=== PATIENT | female | born 1975 | race Two or more races ===

== ENCOUNTER 2024-08-16 07:35 | Emergency (ER) | payer OTHER ==
[~2024-08-16] VITALS: Ht 162.6 cm; Wt 72.7 kg
[2024-08-16] MEDS: DiphenhydrAMINE HCL 50 MG CAPSULE PO ONE (08:37)
[2024-08-16 08:55] VITALS: TEMP 98.2
[2024-08-16 09:12] LABS: COVID AG,FIA SOURCE NASAL SWAB
[2024-08-16 09:35] LABS: BASOPHILS % (AUTO) 0.4 % (0.0-2.0); EOSINOPHILS % (AUTO) 7.1 % (1.0-6.0); HEMATOCRIT 41.4 % (36-46); HEMOGLOBIN 13.7 g/dL (12.0-16.0); LYMPHOCYTES # (AUTO) 1.8 K/uL (1.0-4.8); LYMPHOCYTES % (AUTO) 23.3 % (22.0-44.0); MEAN CORPUSCULAR HEMOGLOBIN 30.7 pg (26.0-34.0); MEAN CORPUSCULAR HGB CONC 33.2 G/dL (31.0-37.0); MEAN CORPUSCULAR VOLUME 93 fL (80-100); MONOCYTES # (AUTO) 0.5 K/uL (0.1-1.0); MONOCYTES % (AUTO) 6.7 % (2.0-9.0); NEUTROPHILS # (AUTO) 4.9 K/uL (1.8-7.7); NEUTROPHILS % (AUTO) 62.5 % (40.0-70.0); PLATELET COUNT (AUTO) 208 K/uL (150-450); RED BLOOD CELL COUNT(AUTO) 4.48 MIL/uL (4.00-5.20); RED CELL DISTRIBUTION WIDTH 13.1 % (11.5-14.5); WHITE BLOOD COUNT (AUTO) 7.8 K/uL (4.5-11.0)
[2024-08-16 09:41] LABS: ANION GAP 10 mmol/L (8-16); CALCIUM, TOTAL 9.2 mg/dL (8.8-10.5); CARBON DIOXIDE 26 mmol/L (22-29); CHLORIDE 104 mmol/L (98-107); CREATININE 0.83 mg/dL (0.60-1.30); GLOMERULAR FILTR. RATE CALC > 60 mL/min (>60); GLUCOSE,RANDOM 123 mg/dL (70-110); SODIUM SERUM 140 mmol/L (136-145); UREA NITROGEN, BLOOD 10 mg/dL (7-18)
[2024-08-16 09:54] LABS: HCG,QUANTITATIVE 2 mIU/mL (0-6)
[2024-08-16 10:06] LABS: SARS-COV2 (COVID) ANTIGEN,FIA Negative (Negative)
[2024-08-16 10:07] LABS: INFLUENZA TYPE A NEGATIVE FOR TYPE A (NEGATIVE); INFLUENZA TYPE B NEGATIVE FOR TYPE B (NEGATIVE)
[2024-08-16] MEDS ORDERED: DIPH50 PO (10:44)
[2024-08-16 10:45] VITALS: BP 124/73; PULSE 68; RESP 18; O2SAT 98
== END 2024-08-16 10:58 | disposition home or self-care (01) ==
LOC: EMS 07:35
DX: L50.9 Urticaria, unspecified (principal); R05.3 Chronic cough; Z20.822 Contact with and (suspected) exposure to COVID-19
CPT/HCPCS: 71046; 80048; 84702; 85025; 87804; 99284; 36415-L1; 36415-TC

== ENCOUNTER 2024-08-18 09:48 | Emergency (ER) | payer OTHER ==
[~2024-08-18] VITALS: Ht 153 cm; Wt 83.6 kg
[~2024-08-18 09:48] MED LIST: DIPH50 PO
[2024-08-18 09:54] VITALS: BP 121/72; PULSE 88; RESP 18; TEMP 97.6; O2SAT 98
[2024-08-18] MEDS ORDERED: METH4TAB3 PO (12:54)
[2024-08-18] MEDS: DEXAMETHASONE SOD PHOS 4 MG/ML 5 ML VIAL IM ONE (12:58)
== END 2024-08-18 13:07 | disposition home or self-care (01) ==
LOC: EMS 09:48
DX: L50.9 Urticaria, unspecified (principal)
CPT/HCPCS: 99283; 96372; J1100